=== PATIENT | male | born 1990 | race African-American/Black ===

== ENCOUNTER → 2018-08-13 | Outpatient (CLI) | payer BC ==
--- NOTE | 2018-08-13 15:23 | Diagnostic Imaging Report ---
INDICATION: Diarrhea and abdominal pain. TIME OF EXAM: 03:00 p.m. No prior studies are available for comparison. No free air is identified. There are surgical clips in the gallbladder fossa. There is some gas throughout the colon. Small bowel loops appear to be nondistended. No pathologic calcifications are seen. IMPRESSION: No acute abnormality is detected. Dictated by: Dictated on workstation # [id number]
== END ==
LOC: RAD FS 14:53
PROVIDERS: ATTEND Family Medicine
DX: R19.7 Diarrhea, unspecified (principal); R10.9 Unspecified abdominal pain; R53.81 Other malaise; Z98.890 Other specified postprocedural states
CPT/HCPCS: 74019

== ENCOUNTER 2021-09-02 11:50 | Emergency (ER) | payer BC, OTHER ==
[~2021-09-02] VITALS: Ht 172 cm; Wt 77.0 kg
[2021-09-02 12:00] VITALS: BP 154/106
[2021-09-02] MEDS ORDERED: TETANUS,DIPTH,PERTUSS P/F (BOOSTRIX) 0.5 ML VIAL IM ONE (12:00)
[2021-09-02] MEDS ORDERED: LIDOCAINE 1% INJ 50 ML (XYLOCAINE) VIAL IJ ONE (12:00)
--- NOTE | 2021-09-02 12:41 | ED Upper Extremity ---
General Chief Complaint: Laceration Stated Complaint: WC RT FINGER LAC Nursing Triage Note: Patient has presented to ER with a laceration on his right pinky finger. He was changing a saw blade at work when the wrench slipped and he cut his finger against the saw blade. Source: patient Exam Limitations: no limitations History of Present Illness Date Seen by Provider: September 02, 2021 Time Seen by Provider: 11:55 Initial Comments This is a 30-year-old gentleman presents to the emergency room with laceration to the outer edge of his distal right fifth finger. He was changing out a blade on a paper winder at work when he accidentally cut his finger. He retains sensation, tendon function, and good capillary refill. He does not know when his last tetanus immunization was. Allergies and Home Medications Allergies Coded Allergies: No Known Drug Allergies (Unverified , 09/02/21) Patient Home Medication List Home Medication List Reviewed: Yes Review of Systems Constitutional: no symptoms reported EENTM: no symptoms reported Cardiovascular: no symptoms reported Musculoskeletal: no symptoms reported Skin: see HPI Psychiatric/Neurological: No Symptoms Reported Past Lkqunwb-Hyufgk-Lrshal Hx Patient Social History Tobacco Use?: Yes Tobacco type used: Cigarettes Smoking Status: Current Everyday Smoker Use of E-Cig and/or Vaping dev: No Substance use?: No Alcohol Use?: Yes Alcohol Frequency: Daily Past Medical History Surgeries: Yes Gallbladder Respiratory: Yes Asthma Cardiac: No Neurological: No Reproductive Disorders: No Genitourinary: No Gastrointestinal: No Musculoskeletal: No Endocrine: No HEENT: No Cancer: No Psychosocial: No Integumentary: No Physical Exam Vital Signs Vital Signs - First Documented 09/02/21 12:00 Temp 37.0 Pulse 92 Resp 18 B/P (MAP) 154/106 (122) Pulse Ox 96 O2 Delivery Room Air Capillary Refill : Height, Weight, BMI Height: '" Weight: lbs. oz. kg; 26.00 BMI Method: General Appearance: WD/WN, no apparent distress HEENT: normal ENT inspection Cardiovascular: other (Normal capillary refill in the distal right fifth finger) Respiratory: no respiratory distress Wrist: Yes normal inspection, Yes no evidence of injury Hand: Right (1.5 cm laceration on the outer edge of the right distal fifth finger extending to the edge of the nail. Minor bleeding noted. Flexion and extension intact. Sensation intact. Capillary refill intact.) Neurologic/Psychiatric: no motor/sensory deficits, alert, normal mood/affect, oriented x 3 Skin: normal color, warm/dry, other (Laceration as above) Procedures/Interventions Wound Location: Upper Extremities Other Wound Location Right fifth finger, distal outer edge. Wound Length (cm): 1.5 Wound's Depth, Shape: linear, sub Q Wound Explored: clean Irrigated w/ Saline (ccs): 100 Betadine Prep?: Yes Anesthesia: 1% Lidocaine Volume Anesthetic (ccs): 4 Suture: Ethlion Suture Size: 5-0 Number of Sutures: 4 Layer Closure?: 1 Sterile Dressing Applied?: Yes Progress Wound was soaked in saline and chlorhexidine. Open wound was sprayed with lidocaine. Base of the right fifth finger was then cleaned with alcohol and a digital block was applied with injection of 1% lidocaine. Approximately 4 mL was injected. Wound was then scrubbed with saline and chlorhexidine and rinsed with saline. Betadine prep was applied. Wound was approximated with 4 interrupted Ethilon 5-0 sutures. A small amount of glue was used to tack down the corner of the laceration on the edge of the nail. Wound was dressed by nursing staff after Betadine was wiped clean. Progress/Results/Core Measures Results/Orders My Orders Orders - TAZ SALAS MD Lidocaine 1% Inj 50 Ml (Xylocaine 1% Inj (09/02/21 12:00) Dipht,Pertuss(Acell),Tet Adult (Boostrix (09/02/21 12:00) Medications Given in ED Current Medications Medications Dose Ordered Sig/Norberto Route Start Time Stop Time Status Last Admin Dose Admin Diphtheria/ Tetanus/Acell Pertussis 0.5 ml ONCE ONCE IM 09/02/21 12:00 09/02/21 12:01 DC 09/02/21 12:11 0.5 ML Lidocaine HCl 50 ml ONCE ONCE IJ 09/02/21 12:00 09/02/21 12:01 DC 09/02/21 12:13 50 ML Vital Signs/I&O 09/02/21 12:00 Temp 37.0 Pulse 92 Resp 18 B/P (MAP) 154/106 (122) Pulse Ox 96 O2 Delivery Room Air Blood Pressure Mean: 122 Progress Progress Note : Progress Note Patient received tetanus booster. Appropriate occupational health and work comp forms were completed. Under digital block wound was repaired with suturing in an interrupted fashion. The distal end of the laceration was glued at the edge of the nail. There is a small triangular flap in that location that was tacked down with glue. Departure Impression Primary Impression: Finger laceration Qualified Codes: S61.216A - Laceration without foreign body of right little finger without damage to nail, initial encounter Additional Impression: Need for tetanus booster Disposition: 01 HOME, SELF-CARE Condition: Improved Departure-Patient Inst. Decision time for Depature: 12:39 Referrals: FREIDA SALDANA MD (PCP) Primary Care Physician Patient Instructions: Laceration Repair With Stitches (DC) Add. Discharge Instructions: Keep the wound clean and dry except for normal showering and handwashing. Take care not to disrupt the sutures or rub directly over the sutures. You may allow soapy water to run over the wound. Keep completely dry until this evening. Do not submerge until the sutures are removed. Monitor for signs of infection such as increasing redness, increasing swelling, increasing pain, puslike drainage, or fever. Return to care promptly if you notice these symptoms. You may take Tylenol and/or ibuprofen for pain. Keep the wound covered while active, sleeping, or in dirty environments. You may leave uncovered and open to air when resting in a clean environment. Return in 7 to 10 days for suture removal. Your work comp company may wish for you to follow-up with an occupational health provider. Please talk to your company's HR provider regarding where to follow-up. Call with questions or concerns and return to care if you have any other significant problems or issues with this injury. All discharge instructions reviewed with patient and/or family. Voiced und erstanding. TAZ SALAS MD September 02, 2021 12:41
== END 2021-09-02 12:59 | disposition home or self-care (01) ==
LOC: EDUNIT# 11:50 → ER FS 11:52
DX: S61.216A Laceration without foreign body of right little finger without damage to nail, initial encounter (principal); F17.210 Nicotine dependence, cigarettes, uncomplicated; Z23 Encounter for immunization; W26.8XXA Contact with other sharp object(s), not elsewhere classified, initial encounter; Y92.59 Other trade areas as the place of occurrence of the external cause; Y99.0 Civilian activity done for income or pay
CPT/HCPCS: 90715